=== PATIENT | female | born 1975 | race Caucasian/White ===

== ENCOUNTER 2020-08-18 19:54 | Emergency (ER) | payer SELFPAY ==
--- NOTE | 2020-08-18 20:24 | ER ---
Nurse's Notes [facility] Name: Joanna Jennings Age: 45 yrs Sex: Female : 1975 Arrival Date: 08/18/2020 Time: 19:57 Bed Waiting Private MD: Diagnosis: Presentation: 08/18 20:12 Chief complaint: Patient states: last night I noticed my eye is red and a little bit rv sore, I think I busted a vessel. no loss of vision. redness on the left eye. Coronavirus screen: At this time, the client does not indicate any symptoms associated with coronavirus-19. Ebola Screen: No symptoms or risks identified at this time. Initial Sepsis Screen: Does the patient meet any 2 criteria? No. Patient's initial sepsis screen is negative. Does the patient have a suspected source of infection? No. Patient's initial sepsis screen is negative. Risk Assessment: Do you want to hurt yourself or someone else? Patient reports no desire to harm self or others. Onset of symptoms was August 17, 2020. 20:12 Method Of Arrival: Ambulatory rv 20:12 Acuity: KVNG 4 rv Triage Assessment: 20:14 General: Appears comfortable, Behavior is calm, cooperative. Pain: Complains of pain in rv left eye. EENT: Eyes redness on the left eye. Historical: - Allergies: 20:14 No Known Allergies; rv - Home Meds: 20:14 None [Active]; rv - PMHx: 20:14 None; rv - PSHx: 20:14 None; rv - Immunization history:: Adult Immunizations up to date, Flu vaccine is not up to date. It has been more than one year since last vaccine. - Social history:: Smoking status: Smoking status: Patient denies any tobacco usage or history of. Vital Signs: 20:12 BP 108 / 83; Pulse 50; Resp 16; Temp 98.8; Pulse Ox 100% ; Weight 59.87 kg; Height 5 rv ft. 2 in. (157.48 cm); Pain 1/10; 20:12 Body Mass Index 24.14 (59.87 kg, 157.48 cm) rv ED Course: 19:57 Patient arrived in ED. bp1 20:14 Triage completed. rv 20:23 Ronny, Jong, RN is Primary Nurse. rv Administered Medications: No medications were administered Outcome: 20:23 Patient left the ED. rv Signatures: Jong Jefferson RN RN rv Loly Luna
[2020-08-18 20:33] VITALS: BP 108/83; TEMP 98.8; O2SAT 100
== END 2020-08-18 20:23 | disposition left against medical advice (07) ==
LOC: ER 19:54
DX: H57.12 Ocular pain, left eye (principal); Z53.21 Procedure and treatment not carried out due to patient leaving prior to being seen by health care provider
CPT/HCPCS: 99281

== ENCOUNTER 2022-07-17 21:42 | Emergency (ER) | payer BC ==
[2022-07-17] MEDS ORDERED: LIDOCAINE 1% MPF 5 ML VIAL ONE (22:42)
[2022-07-17] MEDS ORDERED: TDAP (DIPHTH,PERTUSS(ACELL),TET VAC) 0.5 ML VIAL IMVAC ONE (22:42)
--- NOTE | 2022-07-17 23:37 | ER ---
Nurse's Notes [facility] Name: Joanna Jennings Age: 47 yrs Sex: Female : 1975 Arrival Date: 07/17/2022 Time: 21:45 Bed 11 Private MD: Diagnosis: Laceration without foreign body of finger without damage to nail-distal phalanx right small finger Presentation: 07/17 21:47 Chief complaint: Patient states: "I was trimming my plants and cut my finger". as6 Coronavirus screen: At this time, the client does not indicate any symptoms associated with coronavirus-19. Ebola Screen: No symptoms or risks identified at this time. Initial Sepsis Screen: Does the patient meet any 2 criteria? No. Patient's initial sepsis screen is negative. Does the patient have a suspected source of infection? No. Patient's initial sepsis screen is negative. Risk Assessment: Do you want to hurt yourself or someone else? Patient reports no desire to harm self or others. Onset of symptoms was July 17, 2022. 21:47 Method Of Arrival: Ambulatory as6 21:47 Acuity: KVNG 4 as6 Triage Assessment: 21:53 General: Appears in no apparent distress. Behavior is cooperative, anxious. Pain: as6 Complains of pain in right hand. 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 Last tetanus immunization: < 10 years ago Flu vaccine is not up to date. - Social history:: Smoking status: Patient denies any tobacco usage or history of. Screenin:[facility] ED Fall Risk Assessment (Adult) History of falling in the last 3 months, em6 including since admission No falls in past 3 months (0 pts) Confusion or Disorientation No (0 pts) Intoxicated or Sedated No (0 pts) Impaired Gait No (0 pts) Mobility Assist Device Used No (0 pt) Altered Elimination No (0 pt) Score/Fall Risk Level 0 - 2 = Low Risk Oriented to surroundings, Maintained a safe environment, Educated pt \\T\\ family on fall prevention, incl call for assistance when getting out of bed, Assessed \\T\\ reinforced patient's understanding of fall precautions, Provided non-skid footwear, Hourly rounding (assess needs \\T\\ fall precautionary measures) done, Used ambulatory aids as needed (educated on \\T\\ assisted with), Used gait belt as appropriate. Abuse screen: Denies threats or abuse. Nutritional screening: No deficits noted. Tuberculosis screening: No symptoms or risk factors identified. Assessment: 21:58 General: Appears in no apparent distress. Behavior is cooperative. Pain: Denies pain. em6 Neuro: Level of Consciousness is awake, alert, obeys commands, Oriented to person, place, time, situation. Cardiovascular: Capillary refill < 3 seconds Patient's skin is warm and dry. Respiratory: Airway is patent Respiratory effort is even, unlabored, Respiratory pattern is regular, symmetrical, Breath sounds are clear bilaterally. GI: No signs and/or symptoms were reported involving the gastrointestinal system. : No signs and/or symptoms were reported regarding the genitourinary system. EENT: No signs and/or symptoms were reported regarding the EENT system. Derm: No signs and/or symptoms reported regarding the dermatologic system. Musculoskeletal: Circulation, motion, and sensation intact. Capillary refill < 3 seconds, Range of motion: intact in all extremities. Injury Description: Laceration sustained to palmar aspect of distal phalanx of right little finger is clean, 0.5 to 2.5 cm long, not bleeding. 23:00 Reassessment: Patient appears in no apparent distress at this time. No changes from em6 previously documented assessment. Patient and/or family updated on plan of care and expected duration. Pain level reassessed. Patient is alert, oriented x 3, equal unlabored respirations, skin warm/dry/pink. Vital Signs: 21:47 BP 129 / 82; Pulse 57; Resp 18 S; Temp 98.0(O); Pulse Ox 98% on R/A; Weight 62.14 kg as6 (R); Height 5 ft. 2 in. (157.48 cm) (R); Pain 7/10; 22:45 BP 107 / 81; Pulse 54; Resp 18; Pulse Ox 100% on R/A; em6 21:47 Body Mass Index 25.06 (62.14 kg, 157.48 cm) as6 ED Course: 21:45 Patient arrived in ED. jj6 21:51 Triage completed. as6 21:51 Arm band placed on. as6 21:53 Torito Jasmine PA is PHCP. cp 21:53 Kael Cortes MD is Attending Physician. cp 21:58 Nadiya Bustos, RN is Primary Nurse. em6 21:59 Placed in gown. Call light in reach. Side rails up X 1. Pulse ox on. NIBP on. Warm em6 blanket given. 22:43 XRAY Finger-Thumb RIGHT In Process Unspecified. EDMS 23:50 No provider procedures requiring assistance completed. Patient did not have IV access em6 during this emergency room visit. Administered Medications: 22:45 Drug: Tetanus-Diphtheria Toxoid Adult 0.5 ml {Director Of Cardiology: [employer] [facility]). Exp: em6 04/15/2023. Lot #: [id number]. } Route: IM; Site: left deltoid; 23:06 Follow up: Response: No adverse reaction em6 22:50 Drug: Lidocaine (1 %) 5 ml {Note: administered by Mitali pope .} Volume: 5 ml; Route: em6 Infiltration; Medication: 23:17 Vaccine Information Statement (VIS) provided today. Questions and/or concerns em6 addressed. VIS edition date: February 25, 2021. Outcome: 23:37 Discharge ordered by . cp 23:50 Discharged to home ambulatory. em6 23:50 Condition: stable 23:50 Condition: stable 23:50 Discharge instructions given to patient, family, Instructed on discharge instructions, follow up and referral plans. medication usage, wound care, Demonstrated understanding of instructions, follow-up care, medications, wound care, splint care, Prescriptions given X 2. 23:50 Patient left the ED. em6 Signatures: Dispatcher [employer] EDMS Torito Jasmine PA PA cp Jeffries, Jennifer jj6 Stuart Ness RN RN as6 Nadiya Bustos, FAIZAN RN em6
--- NOTE | 2022-07-17 23:38 | EDPHYS ---
Physician Documentation [facility] Name: Joanna Jennings Age: 47 yrs Sex: Female : 1975 Arrival Date: 07/17/2022 Time: 21:45 Bed 11 Private MD: ED Physician Kael Cortes HPI: 07/17 22:30 This 47 yrs old Female presents to ER via Ambulatory with complaints of Finger Injury, cp Laceration To Hand. 22:30 The patient or guardian reports injury. The complaints affect the palmar aspect of cp distal phalanx of right little finger. Context: using garden rachel, accidently injured right small finger. 22:30 Onset: The symptoms/episode began/occurred today. Associated signs and symptoms: The cp patient has no apparent associated signs or symptoms. 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 Last tetanus immunization: < 10 years ago Flu vaccine is not up to date. - Social history:: Smoking status: Patient denies any tobacco usage or history of. ROS: 22:33 MS/extremity: Positive for laceration, pain, of the palmar aspect of distal phalanx of cp right little finger, Negative for paresthesias. 22:33 Constitutional: Negative for fever. cp 22:33 Respiratory: Negative for cough, shortness of breath, wheezing. 22:33 Abdomen/GI: Negative for abdominal pain, nausea, vomiting, and diarrhea. 22:33 All other systems are negative. Exam: 22:40 Constitutional: The patient appears in no acute distress, alert, awake, non-toxic, well cp developed, well nourished, anxious. 22:40 Head/Face: Normocephalic, atraumatic. cp 22:40 Chest/axilla: Inspection: normal. 22:40 Cardiovascular: Rate: bradycardic, Rhythm: regular. 22:40 Respiratory: the patient does not display signs of respiratory distress, Respirations: normal, no use of accessory muscles, no retractions. 22:40 Abdomen/GI: Exam negative for discomfort, distension, guarding, Inspection: abdomen appears normal. 22:40 Musculoskeletal/extremity: Perfusion: the extremity is with brisk capillary refill, the right small finger Sensation intact. Tendon exam: specific tendon testing normal through active and passive range of motion 22:40 Skin: injury, laceration(s), the wound is approximately 2 cm(s), of the palmar aspect of distal phalanx of right little finger, that can be described as linear, with mild bleeding, skin flap noted. Vital Signs: 21:47 BP 129 / 82; Pulse 57; Resp 18 S; Temp 98.0(O); Pulse Ox 98% on R/A; Weight 62.14 kg as6 (R); Height 5 ft. 2 in. (157.48 cm) (R); Pain 7/10; 22:45 BP 107 / 81; Pulse 54; Resp 18; Pulse Ox 100% on R/A; em6 21:47 Body Mass Index 25.06 (62.14 kg, 157.48 cm) as6 Laceration: 23:35 Wound Repair of 2cm ( 0.8in ) subcutaneous laceration to palmar aspect of distal cp phalanx of right little finger. Skin/tissue flap noted.. Distal neuro/vascular/tendon intact. Anesthesia: Local anesthetic administered with 3 mls of 1% lidocaine. Wound prep: Moderate cleansing by me, Wound irrigation by me. Skin closed with 5 5-0 Prolene using interrupted sutures and sterile technique. Dressed with Bacitracin. Patient tolerated well. MDM: 21:55 Patient medically screened. cp 22:45 Test interpretation: by ED physician or midlevel provider: xrays of left small finger cp negative for fracture. 23:36 Data reviewed: vital signs, nurses notes, radiologic studies, plain films. cp 23:36 Differential diagnosis: open fracture, tendon injury, simple laceration, nail injury. cp Counseling: I had a detailed discussion with the patient and/or guardian regarding: the historical points, exam findings, and any diagnostic results supporting the discharge/admit diagnosis, radiology results. Response to treatment: the patient's symptoms have markedly improved after treatment, and as a result, I will discharge patient. 07/17 22:17 Order name: XRAY Finger-Thumb RIGHT cp 07/17 22:17 Order name: Dressing - Wound; Complete Time: 23:21 cp 07/17 22:17 Order name: Gloves, Sterile; Complete Time: 22:33 cp 07/17 22:17 Order name: Setup Suture Tray; Complete Time: 22:33 cp 07/17 22:30 Order name: Wound Care; Complete Time: 22:45 cp 07/17 23:13 Order name: Wound dressing; Complete Time: 23:21 cp 07/17 23:18 Order name: Finger Splint; Complete Time: 23:22 cp Administered Medications: 22:45 Drug: Tetanus-Diphtheria Toxoid Adult 0.5 ml {Assistant Teaching Professor: [employer] Exp: em6 04/15/2023. Lot #: [id number]. } Route: IM; Site: left deltoid; 23:06 Follow up: Response: No adverse reaction em6 22:50 Drug: Lidocaine (1 %) 5 ml {Note: administered by Mitali pope .} Volume: 5 ml; Route: em6 Infiltration; Disposition: 07/18 01:28 Co-signature as Attending Physician, Kael Cortes MD. rn Disposition Summary: 07/17/22 23:37 Discharge Ordered Location: Home cp Problem: new cp Symptoms: have improved cp Condition: Stable cp Diagnosis - Laceration without foreign body of finger without damage to nail - distal phalanx cp right small finger Followup: cp - With: Private Physician - When: 7 - 10 days - Reason: Staple/Suture removal Discharge Instructions: - Discharge Summary Sheet cp - Laceration Care, Adult cp Forms: - Medication Reconciliation Form cp - Thank You Letter cp - Antibiotic Education cp - Prescription Opioid Use cp Prescriptions: - Cephalexin 500 mg Oral Capsule - take 1 capsule by ORAL route every 8 hours for 10 days; 30 capsule; Refills: 0, cp Product Selection Permitted - Naprosyn 500 mg Oral Tablet - take 1 tablet by ORAL route 2 times per day take with food; 20 tablet; Refills: cp 0, Product Selection Permitted Signatures: Dispatcher [employer] Kael Castro MD MD rn Page, Corey, PA PA cp Stuart Ness RN RN as6 Nadiya Bustos RN RN em6
[2022-07-18 00:14] VITALS: BP 107/81; O2SAT 100
[2022-07-18 00:15] VITALS: TEMP 98
--- NOTE | 2022-07-18 10:36 | RAD REPORT ---
EXAM DESCRIPTION: XR Right Fingers, 2 or More Views CLINICAL HISTORY: The patient is 47 years old and is Female; laceration injury TECHNIQUE: Frontal, lateral and oblique views of the fingers of the right hand. COMPARISON: No relevant prior studies available. FINDINGS: BONES/JOINTS: Unremarkable. No acute fracture. No dislocation. SOFT TISSUES: Laceration to the tip of the soft tissues of the fifth digit is present. No radi opaque foreign body. IMPRESSION: Laceration to the tip of the soft tissues of the fifth digit is present. No underlying acute bony abnormality. Electronically signed by: Fara Judd MD 07/17/2022 11:17 PM AIR CONDITIONING SUPERVISOR Due to temporary technical issues with the PACS/Fluency reporting system, reports are being signed by the in house radiologists without review as a courtesy to insure prompt reporting. The interpreting radiologist is fully responsible for the content of the report.
== END 2022-07-17 23:50 | disposition home or self-care (01) ==
LOC: ER 21:42
PROC: 0JQJ0ZZ Repair Right Hand Subcutaneous Tissue and Fascia, Open Approach (ICD-10-PCS; principal; 2022-07-17)
DX: S61.216A Laceration without foreign body of right little finger without damage to nail, initial encounter (principal); Z23 Encounter for immunization
CPT/HCPCS: 73140; 12001; J2001; 90471; 99284